=== PATIENT | female | born 1940 | race Caucasian/White ===

== ENCOUNTER → 2021-10-11 | Outpatient (CLI) | payer OTHER ==
[2021-10-11 12:31] LABS: HEMATOCRIT 32.1 % (36-48); LYMPHOCYTES % (AUTO) 26.1 % (21.0-51.0); MEAN CORPUSCULAR HEMOGLOBIN 28.4 pg (27.0-33.0); MEAN CORPUSCULAR HGB CONC 31.5 g/dL (32.0-36.0); MEAN CORPUSCULAR VOLUME 90.2 fL (79-99); MONOCYTES % (AUTO) 9.8 % (3.0-13.0); NEUTROPHILS % (AUTO) 60.7 % (40.0-77.0); PLATELET COUNT (AUTO) 245 K/uL (130-400); RED BLOOD CELL COUNT(AUTO) 3.56 MIL/uL (4.00-5.50); RED CELL DISTRIBUTION WIDTH 14.3 % (11.0-15.5)
[2021-10-11 12:58] LABS: B-TYPE NATRIURETIC PEPTIDE 94 pg/mL (0-100)
[2021-10-11 13:07] LABS: CREATININE 1.5 mg/dL (0.5-1.5); POTASSIUM 4.5 mmol/L (3.5-5.1)
== END | disposition home or self-care (01) ==
LOC: LAB 08:23
PROVIDERS: ATTEND Internal Medicine Cardiovascular Disease
DX: I11.9 Hypertensive heart disease without heart failure (principal); I25.10 Atherosclerotic heart disease of native coronary artery without angina pectoris
CPT/HCPCS: 36415; 80048; 83880; 85025; 85378

== ENCOUNTER → 2022-07-11 | Outpatient (CLI) | payer OTHER ==
[~2022-07-11] MED LIST: ALPR0.255 PO; ESOM20CA39 PO; GLIP10TA9 PO; METO-391 PO; METO10TA3 PO; OLME40TA18 PO; PRAV20TA4 PO
== END | disposition home or self-care (01) ==
LOC: LAB 10:01
PROVIDERS: ATTEND Internal Medicine Cardiovascular Disease
DX: I10 Essential (primary) hypertension (principal)
CPT/HCPCS: 36415; 83880

== ENCOUNTER → 2022-08-07 | Outpatient (CLI) | payer OTHER ==
[~2022-08-07] MED LIST changes: +AEC81 PO; +AMLO2.5T2 PO; +CEPH500C2 PO; +FURO40TA7 PO; -METO-391 PO
== END | disposition home or self-care (01) ==
LOC: SHCH 10:27
PROVIDERS: ATTEND Internal Medicine Cardiovascular Disease
DX: I08.3 Combined rheumatic disorders of mitral, aortic and tricuspid valves (principal); I25.10 Atherosclerotic heart disease of native coronary artery without angina pectoris; I10 Essential (primary) hypertension; E78.5 Hyperlipidemia, unspecified; E11.9 Type 2 diabetes mellitus without complications
CPT/HCPCS: 93306

== ENCOUNTER 2022-08-21 14:13 | Inpatient (IN) | payer OTHER ==
[~2022-08-21] VITALS: Ht 175.3 cm; Wt 57.7 kg
[~2022-08-21 14:13] MED LIST changes: +ETOMIDATE 20MG VIAL IVP ONE; +ROCURONIUM BROMIDE 10MG/1ML 5ML VL IV ONE
[2022-08-21] MEDS ORDERED: KCL 20 MEQ ERTAB PO PRN (15:30)
[2022-08-21] MEDS ORDERED: LACTULOSE 20 GM/30 ML UDCUP PO PRN (15:30)
[2022-08-21] MEDS ORDERED: MAGNESIUM 2GM PREMIX 50ML 50 ML IV PRN (15:30)
[2022-08-21] MEDS ORDERED: ONDANSETRON 4MG INJ IV PRN (15:30)
[2022-08-21] MEDS ORDERED: POTASSIUM CHLORIDE 20MEQ/100ML 100 ML IV PRN (15:30)
[2022-08-21] MEDS ORDERED: MAG/ALUM/SIMETH 30 ML UDCUP PO PRN (15:30)
[2022-08-21] MEDS ORDERED: DiphenhydrAMINE HCL 50 MG/ML VIAL IV PRN (15:30)
[2022-08-21] MEDS ORDERED: NITROGLYCERIN 0.4 MG SL TAB SL PRN (15:30)
[2022-08-21] MEDS ORDERED: DIPHENHYDRAMINE HCL 25 MG CAPSULE PO PRN (15:30)
[2022-08-21] MEDS ORDERED: GLUCAGON 1MG KIT 1 MG ML IM PRN (15:30)
[2022-08-21] MEDS ORDERED: DEXTROSE 50%-WATER 50 ML DISP.SYRIN IV PRN (15:30)
[2022-08-21] MEDS ORDERED: GUAIFENESIN-DM 200/20 MG 10 ML PO PRN (15:30)
[2022-08-21] MEDS ORDERED: ACETAMINOPHEN 325 MG TAB PO PRN ×2 (15:30)
[2022-08-21 15:39] LABS: EOSINOPHILS % (AUTO) 2.3 % (0.0-8.0); HEMATOCRIT 35.2 % (36-48); LYMPHOCYTES % (AUTO) 28.7 % (21.0-51.0); MEAN CORPUSCULAR HEMOGLOBIN 29.8 pg (27.0-33.0); MEAN CORPUSCULAR VOLUME 90.5 fL (79-99); MONOCYTES % (AUTO) 7.7 % (3.0-13.0); NEUTROPHILS % (AUTO) 59.9 % (40.0-77.0); PLATELET COUNT (AUTO) 175 K/uL (130-400); RED BLOOD CELL COUNT(AUTO) 3.89 MIL/uL (4.00-5.50); RED CELL DISTRIBUTION WIDTH 14.4 % (11.0-15.5); WHITE BLOOD COUNT (AUTO) 7.3 K/uL (4.8-10.8)
[2022-08-21 15:49] LABS: INR 1.1 (0.85-1.15); PROTHROMBIN TIME 11.9 SEC (9.6-11.6)
[2022-08-21 15:50] LABS: PARTIAL THROMBOPLASTIN TIME 27.8 SEC (26.3-35.5)
[2022-08-21 15:54] LABS: % IRON SATURATION 27.1 % (22-44)
[2022-08-21 15:57] LABS: B-TYPE NATRIURETIC PEPTIDE 995 pg/mL (0-100)
[2022-08-21 16:05] LABS: ALBUMIN 3.4 g/dL (3.5-5.0); CREATININE 2.1 mg/dL (0.5-1.5); MAGNESIUM 2.3 mg/dL (1.80-2.40); PHOSPHORUS 1.9 mg/dL (2.5-4.9); THYROID STIMULATING HORMONE 1.99 uIU/mL (0.36-3.74)
[2022-08-21] MEDS: INSULIN HUMULIN R 100 UNIT/ML 3ML SQ SCH ×2 (16:30→22:00)
[2022-08-21 16:53] LABS: ABG BASE EXCESS 1.7 mmol/L (-2.0-3.0); ABG HCO3 20.4 mmol/L (21.0-28.0); ABG PCO2 20 mmHg (32-45)
[2022-08-21] MEDS: FAMOTIDINE 20MG TAB PO SCH (17:00)
[2022-08-21] MEDS ORDERED: FAMOTIDINE 20MG VIAL IV SCH (21:00)
[2022-08-21] MEDS: AMLODIPINE 2.5 MG TAB PO SCH (22:00)
[2022-08-21] MEDS: HEPARIN 5,000 UNIT VIAL SQ SCH (22:00)
[2022-08-21 23:39] VITALS: BP 175/66
[2022-08-22] VITALS: BP 149/93
[2022-08-22] MEDS: ALPRAZOLAM 0.25 MG TABLET PO SCH ×2 (01:04→20:25)
[2022-08-22 04:00] VITALS: BP 127/58
[2022-08-22 04:05] LABS: BASOPHILS % (AUTO) 0.8 % (0.0-5.0); EOSINOPHILS % (AUTO) 2.2 % (0.0-8.0); LYMPHOCYTES % (AUTO) 24.1 % (21.0-51.0); MEAN CORPUSCULAR HEMOGLOBIN 30.3 pg (27.0-33.0); MEAN CORPUSCULAR HGB CONC 33.2 g/dL (32.0-36.0); MEAN CORPUSCULAR VOLUME 91.2 fL (79-99); MONOCYTES % (AUTO) 9.1 % (3.0-13.0); NEUTROPHILS % (AUTO) 63.2 % (40.0-77.0); PLATELET COUNT (AUTO) 143 K/uL (130-400); RED CELL DISTRIBUTION WIDTH 14.2 % (11.0-15.5); WHITE BLOOD COUNT (AUTO) 7.2 K/uL (4.8-10.8)
[2022-08-22 04:20] LABS: MAGNESIUM 2.1 mg/dL (1.80-2.40); POTASSIUM 3.4 mmol/L (3.5-5.1)
[2022-08-22] MEDS: INSULIN HUMULIN R 100 UNIT/ML 3ML SQ SCH ×4 (07:23→21:06)
[2022-08-22 07:41] LABS: ABG HCO3 21.6 mmol/L (21.0-28.0); ABG OXYGEN SATURATION 98.9 % (95.0-99.0); ABG PCO2 23 mmHg (32-45)
[2022-08-22 08:00] VITALS: BP 138/53
[2022-08-22] MEDS: ASPIRIN 81 MG EC TAB PO SCH (08:02)
[2022-08-22] MEDS: FAMOTIDINE 20MG TAB PO SCH (08:02)
[2022-08-22] MEDS: AMLODIPINE 2.5 MG TAB PO SCH ×2 (08:02→20:25)
[2022-08-22] MEDS: FUROSEMIDE 40 MG TABLET PO SCH (08:02)
[2022-08-22] MEDS: HEPARIN 5,000 UNIT VIAL SQ SCH ×3 (08:09→20:26)
[2022-08-22 12:00] VITALS: BP 128/51
[2022-08-22] MEDS ORDERED: VANCOMYCIN 1G/250ML KIT 250 ML IV PRN (13:00)
[2022-08-22 16:00] VITALS: BP 155/47
[2022-08-22 20:00] VITALS: BP 140/83
[2022-08-23] VITALS (35 sets, daily range): BP systolic 74–209; BP diastolic 39–99
[2022-08-23 04:06] LABS: BASOPHILS % (AUTO) 1.2 % (0.0-5.0); EOSINOPHILS % (AUTO) 2.9 % (0.0-8.0); HEMATOCRIT 33.9 % (36-48); MEAN CORPUSCULAR HEMOGLOBIN 29.9 pg (27.0-33.0); MEAN CORPUSCULAR HGB CONC 32.2 g/dL (32.0-36.0); MEAN CORPUSCULAR VOLUME 93.1 fL (79-99); MONOCYTES % (AUTO) 9.2 % (3.0-13.0); NEUTROPHILS % (AUTO) 55.5 % (40.0-77.0); PLATELET COUNT (AUTO) 131 K/uL (130-400); RED BLOOD CELL COUNT(AUTO) 3.64 MIL/uL (4.00-5.50); RED CELL DISTRIBUTION WIDTH 14.5 % (11.0-15.5); WHITE BLOOD COUNT (AUTO) 5.9 K/uL (4.8-10.8)
[2022-08-23 04:16] LABS: CREATININE 2.1 mg/dL (0.5-1.5); POTASSIUM 3.6 mmol/L (3.5-5.1)
[2022-08-23] MEDS: POTASSIUM CHLORIDE 10% ELIXIR 20 MEQ/15 ML UDCUP PO PRN (05:00)
[2022-08-23] MEDS: INSULIN HUMULIN R 100 UNIT/ML 3ML SQ SCH ×4 (06:38→21:00)
[2022-08-23] MEDS: HEPARIN 5,000 UNIT VIAL SQ SCH ×3 (07:47→21:00)
[2022-08-23] MEDS: ASPIRIN 81 MG EC TAB PO SCH (08:27)
[2022-08-23] MEDS: AMLODIPINE 2.5 MG TAB PO SCH ×2 (08:27→21:00)
[2022-08-23] MEDS: FAMOTIDINE 20MG TAB PO SCH (08:28)
[2022-08-23] MEDS: FUROSEMIDE 40 MG TABLET PO SCH (08:28)
[2022-08-23] MEDS ORDERED: ALPRAZOLAM 0.5 MG TABLET ONE (11:39)
[2022-08-23 11:55] LABS: ABG BASE EXCESS -0.4 mmol/L (-2.0-3.0); ABG HCO3 15.2 mmol/L (21.0-28.0); ABG OXYGEN SATURATION 98.8 % (95.0-99.0); ABG PCO2 < 15 mmHg (32-45)
[2022-08-23] MEDS ORDERED: ALPRAZOLAM 0.5 MG TABLET PO ONE (13:00)
[2022-08-23] MEDS ORDERED: MEPERIDINE-PF 25 MG/ML SYG ONE ×2 (15:48→17:00)
[2022-08-23] MEDS ORDERED: LIDOCAINE HCL 1% MDV 50ML VIAL ONE (15:48)
[2022-08-23] MEDS ORDERED: MIDAZOLAM HCL 1 MG/ML 2ML VIAL ONE ×2 (15:49→17:00)
[2022-08-23] MEDS ORDERED: BUPIVACAINE/PF 0.25% 10ML VIAL IJ ONE (15:49)
[2022-08-23] MEDS ORDERED: IOHEXOL-350 50ML VIAL IV ONE (17:03)
[2022-08-23] MEDS ORDERED: FLUMAZENIL 0.1MG/1ML 5ML VIAL IV ONE (18:23)
[2022-08-23] MEDS ORDERED: NALOXONE HCL 0.4 MG/1 ML ML ONE (18:24)
[2022-08-23 19:44] LABS: ABG BASE EXCESS -7.4 mmol/L (-2.0-3.0); ABG HCO3 21.3 mmol/L (21.0-28.0); ABG OXYGEN SATURATION 99.5 % (95.0-99.0); ABG PCO2 56 mmHg (32-45)
[2022-08-23] MEDS: ALPRAZOLAM 0.25 MG TABLET PO SCH (21:00)
[2022-08-23] MEDS ORDERED: NOREPINEPHRIN 4MG/NS 250ML 250 ML IV SCH (22:00)
[2022-08-24] VITALS (71 sets, daily range): BP systolic 77–165; BP diastolic 39–85
[2022-08-24 00:12] LABS: ABG BASE EXCESS -5.7 mmol/L (-2.0-3.0); ABG HCO3 19.5 mmol/L (21.0-28.0); ABG OXYGEN SATURATION 99.2 % (95.0-99.0); ABG PCO2 37 mmHg (32-45)
[2022-08-24] MEDS ORDERED: PROPOFOL 1000 MG/100 ML 100 ML IV ONE (01:27)
[2022-08-24] MEDS ORDERED: PROPOFOL 1000 MG/100 ML IV PRN (01:30)
[2022-08-24 04:21] LABS: BASOPHILS % (AUTO) 0.2 % (0.0-5.0); HEMATOCRIT 34.5 % (36-48); LYMPHOCYTES % (AUTO) 4.3 % (21.0-51.0); MEAN CORPUSCULAR HEMOGLOBIN 29.9 pg (27.0-33.0); MEAN CORPUSCULAR HGB CONC 32.5 g/dL (32.0-36.0); MEAN CORPUSCULAR VOLUME 92.2 fL (79-99); MONOCYTES % (AUTO) 6.6 % (3.0-13.0); NEUTROPHILS % (AUTO) 88.5 % (40.0-77.0); PLATELET COUNT (AUTO) 151 K/uL (130-400); RED BLOOD CELL COUNT(AUTO) 3.74 MIL/uL (4.00-5.50); RED CELL DISTRIBUTION WIDTH 14.1 % (11.0-15.5); WHITE BLOOD COUNT (AUTO) 15.2 K/uL (4.8-10.8)
[2022-08-24 04:43] LABS: CREATININE 2.2 mg/dL (0.5-1.5); POTASSIUM 4.1 mmol/L (3.5-5.1)
[2022-08-24 05:16] LABS: OCCULT BLOOD,GASTRIC FLUID POSITIVE (NEGATIVE)
[2022-08-24] MEDS: INSULIN HUMULIN R 100 UNIT/ML 3ML SQ SCH ×4 (06:11→21:00)
[2022-08-24] MEDS ORDERED: MIDAZOLAM HCL 1 MG/ML 2ML VIAL ONE (07:39)
[2022-08-24] MEDS: AMLODIPINE 2.5 MG TAB PO SCH ×2 (09:00→20:43)
[2022-08-24] MEDS: HEPARIN 5,000 UNIT VIAL SQ SCH ×3 (09:00→20:44)
[2022-08-24] MEDS: CEFEPIME HCL 1 GM VIAL IVPB SCH ×2 (09:48→20:43)
[2022-08-24] MEDS: ASPIRIN 81 MG EC TAB PO SCH (09:48)
[2022-08-24] MEDS: FAMOTIDINE 20MG TAB PO SCH (09:48)
[2022-08-24] MEDS: FUROSEMIDE 40 MG TABLET PO SCH (09:49)
[2022-08-24] MEDS ORDERED: BISACODYL 10 MG SUPP.RECT RC ONE (12:00)
[2022-08-24] MEDS: IPRATROPIUM 0.5 MG/2.5 ML INH IH PRN ×2 (12:09→19:41)
[2022-08-24] MEDS: ACETYLCYSTEINE 10% 100MG/ML 4ML VIAL IH SCH ×2 (12:09→19:41)
[2022-08-24 12:49] LABS: APPEARANCE,URINE TURBID (CLEAR); BILIRUBIN,URINE NEGATIVE (NEGATIVE); COLOR,URINE YELLOW (YELLOW); GLUCOSE, URINE (UA) 50 mg/dL (NEGATIVE); KETONES,URINE NEGATIVE (NEGATIVE); LEUKOCYTE ESTERASE ,URINE 500 Leu/uL (NEGATIVE); NITRATE,URINE NEGATIVE (NEGATIVE); OCCULT BLOOD,URINE LARGE (NEGATIVE); PH,URINE 5.5 (5.0-8.0); PROTEIN,URINE 70 mg/dL (NEGATIVE); UROBILINOGEN,URINE 0.2 mg/dL (0.2-1.0)
[2022-08-24 13:26] LABS: BACTERIA,URINE MOD /HPF (None Seen); CALCIUM OXALATE CRYSTALS,UR MOD /LPF (None Seen); MUCUS,URINE MOD LPF (None Seen); RBC,URINE 26-50 /HPF (0-1); RENAL EPITHELIAL CELLS,URINE FEW /HPF (None Seen); SQUAMOUS EPITHELIAL CELL,UR FEW /HPF (0-2); WBC,URINE TNTC /HPF (0-1)
[2022-08-24] MEDS ORDERED: DEXMEDETOMIDINE HCL 400 MCG in 0.9%NACL 100ML 100 ML IV SCH (16:00)
[2022-08-24] MEDS ORDERED: DEXMEDETOMIDINE 400MCG/NS100ML IV SCH (16:30)
[2022-08-24 17:10] LABS: ABG BASE EXCESS -3.2 mmol/L (-2.0-3.0); ABG HCO3 19.5 mmol/L (21.0-28.0); ABG OXYGEN SATURATION 99.4 % (95.0-99.0); ABG PCO2 29 mmHg (32-45)
[2022-08-24] MEDS: ALPRAZOLAM 0.25 MG TABLET PO SCH (20:43)
[2022-08-25] VITALS (54 sets, daily range): BP systolic 85–152; BP diastolic 39–109
[2022-08-25 04:38] LABS: BASOPHILS % (AUTO) 0.3 % (0.0-5.0); EOSINOPHILS % (AUTO) 0.1 % (0.0-8.0); HEMATOCRIT 34.2 % (36-48); LYMPHOCYTES % (AUTO) 8.5 % (21.0-51.0); MEAN CORPUSCULAR HEMOGLOBIN 30.1 pg (27.0-33.0); MEAN CORPUSCULAR HGB CONC 32.2 g/dL (32.0-36.0); MEAN CORPUSCULAR VOLUME 93.7 fL (79-99); NEUTROPHILS % (AUTO) 83.5 % (40.0-77.0); PLATELET COUNT (AUTO) 131 K/uL (130-400); RED BLOOD CELL COUNT(AUTO) 3.65 MIL/uL (4.00-5.50); RED CELL DISTRIBUTION WIDTH 14.3 % (11.0-15.5); WHITE BLOOD COUNT (AUTO) 11.6 K/uL (4.8-10.8)
[2022-08-25 04:59] LABS: CREATININE 2.5 mg/dL (0.5-1.5); MAGNESIUM 2.2 mg/dL (1.80-2.40); PHOSPHORUS 4.4 mg/dL (2.5-4.9); POTASSIUM 4.6 mmol/L (3.5-5.1)
[2022-08-25] MEDS: ACETYLCYSTEINE 10% 100MG/ML 4ML VIAL IH SCH (06:44)
[2022-08-25] MEDS: IPRATROPIUM 0.5 MG/2.5 ML INH IH PRN (06:44)
[2022-08-25] MEDS: INSULIN HUMULIN R 100 UNIT/ML 3ML SQ SCH ×4 (07:30→21:00)
[2022-08-25] MEDS: AMLODIPINE 2.5 MG TAB PO SCH ×2 (08:47→20:52)
[2022-08-25] MEDS: CEFEPIME HCL 1 GM VIAL IVPB SCH ×2 (08:50→20:51)
[2022-08-25] MEDS: FUROSEMIDE 40 MG TABLET PO SCH (08:51)
[2022-08-25] MEDS: HEPARIN 5,000 UNIT VIAL SQ SCH ×3 (08:51→20:52)
[2022-08-25] MEDS: ASPIRIN 81 MG EC TAB PO SCH (08:54)
[2022-08-25] MEDS: FAMOTIDINE 20MG TAB PO SCH (08:55)
[2022-08-25] MEDS: ACETAMINOPHEN 500 MG TABLET PO PRN (11:47)
[2022-08-25] MEDS ORDERED: HYDROMORPHONE 0.5 MG SYG (0.5MG/0.5ML) IVP PRN ×2 (18:00)
[2022-08-25] MEDS: PHARMACY COMMUNICATION MISC SCH ×2 (18:13→19:00)
[2022-08-25] MEDS ORDERED: VANCOMYCIN 500MG+NS 100ML 100 ML IV SCH (19:00)
[2022-08-25] MEDS: ALPRAZOLAM 0.25 MG TABLET PO SCH (20:52)
[2022-08-26] VITALS (39 sets, daily range): BP systolic 84–179; BP diastolic 42–118
[2022-08-26 06:10] LABS: BASOPHILS % (AUTO) 0.5 % (0.0-5.0); HEMATOCRIT 33.7 % (36-48); LYMPHOCYTES % (AUTO) 9.4 % (21.0-51.0); MEAN CORPUSCULAR HEMOGLOBIN 29.8 pg (27.0-33.0); MEAN CORPUSCULAR HGB CONC 32.9 g/dL (32.0-36.0); MEAN CORPUSCULAR VOLUME 90.6 fL (79-99); MONOCYTES % (AUTO) 9.2 % (3.0-13.0); NEUTROPHILS % (AUTO) 80.4 % (40.0-77.0); PLATELET COUNT (AUTO) 135 K/uL (130-400); RED BLOOD CELL COUNT(AUTO) 3.72 MIL/uL (4.00-5.50); RED CELL DISTRIBUTION WIDTH 14.5 % (11.0-15.5); WHITE BLOOD COUNT (AUTO) 10.5 K/uL (4.8-10.8)
[2022-08-26 06:26] LABS: CREATININE 2.9 mg/dL (0.5-1.5); MAGNESIUM 2.2 mg/dL (1.80-2.40); POTASSIUM 3.3 mmol/L (3.5-5.1); VANCOMYCIN LEVEL 17.7 mcg/mL (18.0-26.0)
[2022-08-26] MEDS: IPRATROPIUM 0.5 MG/2.5 ML INH IH PRN (06:33)
[2022-08-26] MEDS: ACETYLCYSTEINE 10% 100MG/ML 4ML VIAL IH SCH (06:34)
[2022-08-26] MEDS: CEFEPIME HCL 1 GM VIAL IVPB SCH ×2 (07:44→21:11)
[2022-08-26] MEDS: INSULIN HUMULIN R 100 UNIT/ML 3ML SQ SCH ×4 (07:45→21:00)
[2022-08-26] MEDS: LACTATED RINGERS 1000ML 1,000 ML IV SCH ×2 (08:56→14:02)
[2022-08-26] MEDS: ASPIRIN 81 MG EC TAB PO SCH (09:00)
[2022-08-26] MEDS: FAMOTIDINE 20MG TAB PO SCH (09:00)
[2022-08-26] MEDS: AMLODIPINE 2.5 MG TAB PO SCH ×2 (09:00→21:00)
[2022-08-26] MEDS ORDERED: LACTATED RINGERS 1000ML IV SCH (09:00)
[2022-08-26 09:04] LABS: ABG BASE EXCESS -2.6 mmol/L (-2.0-3.0); ABG HCO3 15.8 mmol/L (21.0-28.0); ABG OXYGEN SATURATION 99.2 % (95.0-99.0); ABG PCO2 17 mmHg (32-45)
[2022-08-26] MEDS: HEPARIN 5,000 UNIT VIAL SQ SCH ×3 (09:39→21:11)
[2022-08-26] MEDS: ACETAMINOPHEN 650 MG SUPPOSITORY RC PRN ×2 (09:40→15:32)
[2022-08-26] MEDS: POTASSIUM CHLORIDE 10MEQ/100ML 100 ML IV PRN ×2 (10:09→14:02)
[2022-08-26] MEDS ORDERED: HYDRALAZINE 20MG/ML VIAL IV PRN (14:30)
[2022-08-26] MEDS: ALPRAZOLAM 0.25 MG TABLET PO SCH (21:00)
[2022-08-27] VITALS (20 sets, daily range): BP systolic 100–174; BP diastolic 33–120
[2022-08-27 03:39] LABS: BASOPHILS % (AUTO) 0.4 % (0.0-5.0); HEMATOCRIT 30.2 % (36-48); LYMPHOCYTES % (AUTO) 7.8 % (21.0-51.0); MEAN CORPUSCULAR HEMOGLOBIN 29.6 pg (27.0-33.0); MEAN CORPUSCULAR HGB CONC 31.8 g/dL (32.0-36.0); MEAN CORPUSCULAR VOLUME 93.2 fL (79-99); MONOCYTES % (AUTO) 10.2 % (3.0-13.0); NEUTROPHILS % (AUTO) 81.2 % (40.0-77.0); PLATELET COUNT (AUTO) 158 K/uL (130-400); RED BLOOD CELL COUNT(AUTO) 3.24 MIL/uL (4.00-5.50); RED CELL DISTRIBUTION WIDTH 15.1 % (11.0-15.5); WHITE BLOOD COUNT (AUTO) 10.6 K/uL (4.8-10.8)
[2022-08-27 03:56] LABS: ALBUMIN 2.3 g/dL (3.5-5.0); CREATININE 2.8 mg/dL (0.5-1.5); MAGNESIUM 2.2 mg/dL (1.80-2.40); POTASSIUM 3.9 mmol/L (3.5-5.1); TOTAL PROTEIN, SERUM 5.8 g/dL (6.0-8.3)
[2022-08-27] MEDS: LACTATED RINGERS 1000ML 1,000 ML IV SCH ×2 (04:21→09:50)
[2022-08-27] MEDS: IPRATROPIUM 0.5 MG/2.5 ML INH IH PRN ×2 (06:57→11:08)
[2022-08-27] MEDS: 0.9%NACL 1000ML 1,000 ML IV SCH (07:30)
[2022-08-27] MEDS: INSULIN HUMULIN R 100 UNIT/ML 3ML SQ SCH ×4 (07:30→21:00)
[2022-08-27] MEDS: CEFEPIME HCL 1 GM VIAL IVPB SCH ×2 (08:17→20:44)
[2022-08-27] MEDS: HEPARIN 5,000 UNIT VIAL SQ SCH (08:20)
[2022-08-27] MEDS: ACETAMINOPHEN 650 MG SUPPOSITORY RC PRN (08:52)
[2022-08-27] MEDS: AMLODIPINE 2.5 MG TAB PO SCH ×2 (09:00→11:42)
[2022-08-27] MEDS: ACETYLCYSTEINE 10% 100MG/ML 4ML VIAL IH SCH ×2 (11:07)
[2022-08-27] MEDS: PANTOPRAZOLE 40 MG/VIAL IVP SCH ×2 (11:41→20:44)
[2022-08-27] MEDS: SODIUM BICARBONATE 650 MG TAB PO SCH ×3 (11:41→17:14)
[2022-08-27] MEDS: ASPIRIN 81 MG EC TAB PO SCH (11:42)
[2022-08-27] MEDS: ACETAMINOPHEN 500 MG TABLET PO PRN ×2 (17:15→23:53)
[2022-08-27] MEDS: ALPRAZOLAM 0.25 MG TABLET PO SCH (20:44)
[2022-08-28] MEDS: ACETYLCYSTEINE 10% 100MG/ML 4ML VIAL IH SCH ×3 (00:11→19:01)
[2022-08-28 01:53] VITALS: BP 141/55
[2022-08-28] MEDS: 0.9%NACL 1000ML 1,000 ML IV SCH (02:32)
[2022-08-28 03:09] VITALS: BP 132/61
[2022-08-28 03:57] LABS: CREATININE 2.4 mg/dL (0.5-1.5)
[2022-08-28] MEDS: POTASSIUM CHLORIDE 10% ELIXIR 20 MEQ/15 ML UDCUP PO PRN ×2 (04:22→05:41)
[2022-08-28] MEDS: INSULIN HUMULIN R 100 UNIT/ML 3ML SQ SCH ×3 (05:54→18:09)
[2022-08-28] MEDS ORDERED: SODIUM BICARBONATE 650 MG TAB PO SCH (07:00)
[2022-08-28] MEDS: IPRATROPIUM 0.5 MG/2.5 ML INH IH PRN ×2 (07:04→19:01)
[2022-08-28 07:45] VITALS: BP 143/90
[2022-08-28] MEDS: ASPIRIN 81 MG EC TAB PO SCH (08:08)
[2022-08-28] MEDS: CEFEPIME HCL 1 GM VIAL IVPB SCH ×2 (08:08→20:39)
[2022-08-28] MEDS: PANTOPRAZOLE 40 MG/VIAL IVP SCH ×2 (08:08→20:40)
[2022-08-28] MEDS: AMLODIPINE 2.5 MG TAB PO SCH (08:09)
[2022-08-28] MEDS: DEXTROSE 5%-WATER 1,000 ML IV SCH (09:50)
[2022-08-28 11:34] VITALS: BP 139/53
[2022-08-28] MEDS: ACETAMINOPHEN 500 MG TABLET PO PRN ×2 (11:59→22:39)
[2022-08-28 12:22] LABS: CREATININE 2.2 mg/dL (0.5-1.5); POTASSIUM 3.8 mmol/L (3.5-5.1)
[2022-08-28 15:42] LABS: ALANINE AMINOTRANSFERASE 142 U/L (12-78); ALBUMIN 2.4 g/dL (3.5-5.0); AMMONIA < 10 umol/L (11-32); ASPARTATE AMINOTRANSFERASE 60 U/L (10-37); BILIRUBIN,DIRECT 0.3 mg/dL (0.0-0.3); TOTAL PROTEIN, SERUM 5.9 g/dL (6.0-8.3)
[2022-08-28 16:14] VITALS: BP 155/61
[2022-08-28] MEDS: PHENAZOPYRIDINE HCL 200 MG TABLET PO SCH ×2 (16:25→22:32)
[2022-08-28] MEDS: PHARMACY COMMUNICATION MISC SCH (16:28)
[2022-08-28] MEDS: LIDOCAINE 4% ADH..PATCH TP SCH (18:01)
[2022-08-28 18:57] LABS: THYROID STIMULATING HORMONE 0.44 uIU/mL (0.36-3.74)
[2022-08-28 19:06] VITALS: BP 141/54
[2022-08-28] MEDS: ALPRAZOLAM 0.25 MG TABLET PO SCH (20:40)
[2022-08-28] MEDS: BALSAM PERU/CASTOR OIL 60 GM TUBE TP SCH (20:41)
[2022-08-29] VITALS (7 sets, daily range): BP systolic 109–141; BP diastolic 46–77
[2022-08-29] MEDS: INSULIN HUMULIN R 100 UNIT/ML 3ML SQ SCH ×4 (00:04→18:11)
[2022-08-29] MEDS: DEXTROSE 5%-WATER 1,000 ML IV SCH ×2 (03:06→20:06)
[2022-08-29 04:22] LABS: CREATININE 2.1 mg/dL (0.5-1.5); POTASSIUM 3.3 mmol/L (3.5-5.1)
[2022-08-29] MEDS: PHENAZOPYRIDINE HCL 200 MG TABLET PO SCH ×3 (06:20→22:38)
[2022-08-29] MEDS: POTASSIUM CHLORIDE 10% ELIXIR 20 MEQ/15 ML UDCUP PO PRN (06:20)
[2022-08-29] MEDS: ACETYLCYSTEINE 10% 100MG/ML 4ML VIAL IH SCH (06:39)
[2022-08-29] MEDS: IPRATROPIUM 0.5 MG/2.5 ML INH IH PRN (06:40)
[2022-08-29] MEDS: ASPIRIN 81 MG EC TAB PO SCH (08:50)
[2022-08-29] MEDS: PANTOPRAZOLE 40 MG/VIAL IVP SCH ×2 (08:50→20:23)
[2022-08-29] MEDS: AMLODIPINE 2.5 MG TAB PO SCH (08:50)
[2022-08-29] MEDS: LIDOCAINE 4% ADH..PATCH TP SCH (08:50)
[2022-08-29] MEDS: CEFEPIME HCL 1 GM VIAL IVPB SCH ×2 (08:50→20:23)
[2022-08-29] MEDS: BALSAM PERU/CASTOR OIL 60 GM TUBE TP SCH ×3 (08:51→20:24)
[2022-08-29] MEDS ORDERED: LIDOCAINE 4% ADH..PATCH TP SCH (09:00)
[2022-08-29] MEDS ORDERED: PAMIDRONATE DISODIUM 90MG VIAL 60 MG in 0.9%NACL 1000ML 1,000 ML IV ONE (12:30)
[2022-08-29] MEDS ORDERED: SODIUM BICARBONATE 650 MG TAB PO SCH (12:33)
[2022-08-29] MEDS ORDERED: POTASSIUM CHLORIDE 20 MEQ/100 ML BAG IV SCH (13:00)
[2022-08-29] MEDS: ALPRAZOLAM 0.25 MG TABLET PO SCH (20:23)
[2022-08-29] MEDS: ACETAMINOPHEN 500 MG TABLET PO PRN (23:52)
[2022-08-30 03:56] VITALS: BP 138/58
[2022-08-30 03:56] LABS: HEMATOCRIT 30.8 % (36-48); MEAN CORPUSCULAR HEMOGLOBIN 29.4 pg (27.0-33.0); MEAN CORPUSCULAR HGB CONC 31.2 g/dL (32.0-36.0); MEAN CORPUSCULAR VOLUME 94.2 fL (79-99); RED BLOOD CELL COUNT(AUTO) 3.27 MIL/uL (4.00-5.50); RED CELL DISTRIBUTION WIDTH 14.7 % (11.0-15.5); WHITE BLOOD COUNT (AUTO) 10.7 K/uL (4.8-10.8)
[2022-08-30 04:10] LABS: ALBUMIN 2.2 g/dL (3.5-5.0); CREATININE 1.8 mg/dL (0.5-1.5); MAGNESIUM 2.2 mg/dL (1.80-2.40); PHOSPHORUS 0.8 mg/dL (2.5-4.9); POTASSIUM 3.7 mmol/L (3.5-5.1); TOTAL PROTEIN, SERUM 5.6 g/dL (6.0-8.3)
[2022-08-30] MEDS: PHENAZOPYRIDINE HCL 200 MG TABLET PO SCH ×3 (05:48→23:16)
[2022-08-30] MEDS: DEXTROSE 5%-WATER 1,000 ML IV SCH ×2 (05:48→09:58)
[2022-08-30] MEDS: INSULIN HUMULIN R 100 UNIT/ML 3ML SQ SCH ×5 (05:49→23:55)
[2022-08-30 07:16] VITALS: BP 115/56
[2022-08-30] MEDS: LIDOCAINE 4% ADH..PATCH TP SCH (09:39)
[2022-08-30] MEDS: CEFEPIME HCL 1 GM VIAL IVPB SCH ×2 (09:39→21:32)
[2022-08-30] MEDS: ASPIRIN 81 MG EC TAB PO SCH (09:39)
[2022-08-30] MEDS: BALSAM PERU/CASTOR OIL 60 GM TUBE TP SCH ×3 (09:40→21:58)
[2022-08-30] MEDS: PANTOPRAZOLE 40 MG/VIAL IVP SCH ×2 (09:40→21:32)
[2022-08-30] MEDS: AMLODIPINE 2.5 MG TAB PO SCH (09:40)
[2022-08-30 10:48] VITALS: BP 125/46
[2022-08-30] MEDS ORDERED: PHARMACY COMMUNICATION MISC SCH (11:00)
[2022-08-30] MEDS ORDERED: POTASSIUM PHOS 15 mMOL+NS250ML 250 ML IV PRN (11:00)
[2022-08-30 16:19] VITALS: BP 145/64
[2022-08-30 19:00] VITALS: BP 131/50
[2022-08-30] MEDS: ALPRAZOLAM 0.25 MG TABLET PO SCH (21:58)
[2022-08-30 23:05] VITALS: BP 133/57
[2022-08-31] MEDS: DEXTROSE 5%-WATER 1,000 ML IV SCH ×3 (02:49→20:13)
[2022-08-31 03:27] VITALS: BP 143/70
[2022-08-31 03:45] LABS: HEMATOCRIT 29.2 % (36-48); MEAN CORPUSCULAR HEMOGLOBIN 29.7 pg (27.0-33.0); MEAN CORPUSCULAR HGB CONC 31.5 g/dL (32.0-36.0); MEAN CORPUSCULAR VOLUME 94.2 fL (79-99); RED BLOOD CELL COUNT(AUTO) 3.1 MIL/uL (4.00-5.50); RED CELL DISTRIBUTION WIDTH 14.6 % (11.0-15.5); WHITE BLOOD COUNT (AUTO) 10.5 K/uL (4.8-10.8)
[2022-08-31 03:58] LABS: ALBUMIN 2.1 g/dL (3.5-5.0); CREATININE 1.5 mg/dL (0.5-1.5); MAGNESIUM 1.9 mg/dL (1.80-2.40); TOTAL PROTEIN, SERUM 5.5 g/dL (6.0-8.3)
[2022-08-31] MEDS: PHENAZOPYRIDINE HCL 200 MG TABLET PO SCH (06:22)
[2022-08-31] MEDS: INSULIN HUMULIN R 100 UNIT/ML 3ML SQ SCH ×3 (06:22→17:49)
[2022-08-31 07:58] VITALS: BP 141/56
[2022-08-31] MEDS: ASPIRIN 81 MG EC TAB PO SCH (08:51)
[2022-08-31] MEDS: CEFEPIME HCL 1 GM VIAL IVPB SCH ×2 (08:51→20:13)
[2022-08-31] MEDS: LIDOCAINE 4% ADH..PATCH TP SCH (08:51)
[2022-08-31] MEDS: BALSAM PERU/CASTOR OIL 60 GM TUBE TP SCH ×3 (08:52→20:13)
[2022-08-31] MEDS: PANTOPRAZOLE 40 MG/VIAL IVP SCH ×2 (08:52→20:13)
[2022-08-31] MEDS: AMLODIPINE 2.5 MG TAB PO SCH (08:52)
[2022-08-31] MEDS ORDERED: PHENAZOPYRIDINE HCL 200 MG TABLET PO PRN (09:30)
[2022-08-31 12:28] VITALS: BP 140/46
[2022-08-31 17:02] VITALS: BP 142/54
[2022-08-31 19:35] VITALS: BP 137/49
[2022-08-31] MEDS: ALPRAZOLAM 0.25 MG TABLET PO SCH (20:14)
[2022-08-31 23:43] VITALS: BP 139/51
[2022-09-01] MEDS: INSULIN HUMULIN R 100 UNIT/ML 3ML SQ SCH ×3 (00:03→12:00)
[2022-09-01 03:55] LABS: HEMATOCRIT 29.8 % (36-48); MEAN CORPUSCULAR HEMOGLOBIN 29.8 pg (27.0-33.0); MEAN CORPUSCULAR HGB CONC 31.9 g/dL (32.0-36.0); MEAN CORPUSCULAR VOLUME 93.4 fL (79-99); RED BLOOD CELL COUNT(AUTO) 3.19 MIL/uL (4.00-5.50); RED CELL DISTRIBUTION WIDTH 14.6 % (11.0-15.5); WHITE BLOOD COUNT (AUTO) 9.4 K/uL (4.8-10.8)
[2022-09-01 04:12] VITALS: BP 148/52
[2022-09-01 04:28] LABS: ALBUMIN 2.1 g/dL (3.5-5.0); BILIRUBIN,DIRECT 0.3 mg/dL (0.0-0.3); CREATININE 1.5 mg/dL (0.5-1.5); MAGNESIUM 2.5 mg/dL (1.80-2.40); TOTAL PROTEIN, SERUM 5.8 g/dL (6.0-8.3)
[2022-09-01 08:00] VITALS: BP 151/95
[2022-09-01] MEDS: LIDOCAINE 4% ADH..PATCH TP SCH (09:04)
[2022-09-01] MEDS: CEFEPIME HCL 1 GM VIAL IVPB SCH ×2 (09:04→20:01)
[2022-09-01] MEDS: ASPIRIN 81 MG EC TAB PO SCH (09:05)
[2022-09-01] MEDS: PANTOPRAZOLE 40 MG/VIAL IVP SCH ×2 (09:05→20:02)
[2022-09-01] MEDS: AMLODIPINE 2.5 MG TAB PO SCH (09:05)
[2022-09-01] MEDS: BALSAM PERU/CASTOR OIL 60 GM TUBE TP SCH ×3 (09:06→20:02)
[2022-09-01 11:30] VITALS: BP 140/54
[2022-09-01 16:00] VITALS: BP 139/56
[2022-09-01 19:35] VITALS: BP 136/51
[2022-09-01] MEDS: ALPRAZOLAM 0.25 MG TABLET PO SCH (20:02)
[2022-09-02 00:02] VITALS: BP 141/57
[2022-09-02 04:07] LABS: BASOPHILS % (AUTO) 0.6 % (0.0-5.0); HEMATOCRIT 28.6 % (36-48); LYMPHOCYTES % (AUTO) 10.7 % (21.0-51.0); MEAN CORPUSCULAR HEMOGLOBIN 29.5 pg (27.0-33.0); MEAN CORPUSCULAR HGB CONC 31.1 g/dL (32.0-36.0); MEAN CORPUSCULAR VOLUME 94.7 fL (79-99); MONOCYTES % (AUTO) 13.6 % (3.0-13.0); NEUTROPHILS % (AUTO) 69.6 % (40.0-77.0); PLATELET COUNT (AUTO) 121 K/uL (130-400); RED BLOOD CELL COUNT(AUTO) 3.02 MIL/uL (4.00-5.50); RED CELL DISTRIBUTION WIDTH 14.7 % (11.0-15.5); WHITE BLOOD COUNT (AUTO) 8.3 K/uL (4.8-10.8)
[2022-09-02 04:21] LABS: ALBUMIN 1.9 g/dL (3.5-5.0); CREATININE 1.5 mg/dL (0.5-1.5); MAGNESIUM 2.3 mg/dL (1.80-2.40); POTASSIUM 4.4 mmol/L (3.5-5.1); TOTAL PROTEIN, SERUM 5.4 g/dL (6.0-8.3)
[2022-09-02 04:29] VITALS: BP 141/57
[2022-09-02] MEDS: INSULIN HUMULIN R 100 UNIT/ML 3ML SQ SCH ×3 (05:21→12:00)
[2022-09-02 09:20] VITALS: BP 145/61
[2022-09-02] MEDS: IPRATROPIUM/ALBUTEROL SULFATE 3 ML SOLUTION IH SCH ×2 (11:30→18:58)
[2022-09-02] MEDS: PANTOPRAZOLE 40 MG/VIAL IVP SCH ×2 (11:44→22:29)
[2022-09-02] MEDS: AMLODIPINE 2.5 MG TAB PO SCH (11:44)
[2022-09-02] MEDS: CEFEPIME HCL 1 GM VIAL IVPB SCH ×2 (11:44→22:29)
[2022-09-02] MEDS: ASPIRIN 81 MG EC TAB PO SCH (11:45)
[2022-09-02] MEDS: LIDOCAINE 4% ADH..PATCH TP SCH (11:52)
[2022-09-02] MEDS: BALSAM PERU/CASTOR OIL 60 GM TUBE TP SCH ×2 (11:52→23:54)
[2022-09-02 12:11] VITALS: BP 134/58
[2022-09-02 16:57] VITALS: BP 126/46
[2022-09-02 19:43] VITALS: BP 130/49
[2022-09-02] MEDS: ALPRAZOLAM 0.25 MG TABLET PO SCH (22:29)
[2022-09-03 00:05] VITALS: BP 142/57
[2022-09-03] MEDS: INSULIN HUMULIN R 100 UNIT/ML 3ML SQ SCH ×4 (00:45→16:48)
[2022-09-03] MEDS: ACETAMINOPHEN 500 MG TABLET PO PRN (03:09)
[2022-09-03 03:55] LABS: BASOPHILS % (AUTO) 0.5 % (0.0-5.0); EOSINOPHILS % (AUTO) 0.5 % (0.0-8.0); LYMPHOCYTES % (AUTO) 9.7 % (21.0-51.0); MEAN CORPUSCULAR HEMOGLOBIN 29.8 pg (27.0-33.0); MEAN CORPUSCULAR HGB CONC 31.7 g/dL (32.0-36.0); MONOCYTES % (AUTO) 10.7 % (3.0-13.0); NEUTROPHILS % (AUTO) 76.6 % (40.0-77.0); PLATELET COUNT (AUTO) 136 K/uL (130-400); RED BLOOD CELL COUNT(AUTO) 3.19 MIL/uL (4.00-5.50); RED CELL DISTRIBUTION WIDTH 14.9 % (11.0-15.5); WHITE BLOOD COUNT (AUTO) 9.9 K/uL (4.8-10.8)
[2022-09-03 04:14] LABS: % IRON SATURATION 18.8 % (22-44)
[2022-09-03 04:31] VITALS: BP 131/61
[2022-09-03 04:56] LABS: CREATININE 1.5 mg/dL (0.5-1.5); MAGNESIUM 2.4 mg/dL (1.80-2.40); POTASSIUM 4.2 mmol/L (3.5-5.1)
[2022-09-03] MEDS: IPRATROPIUM/ALBUTEROL SULFATE 3 ML SOLUTION IH SCH ×3 (07:01→18:00)
[2022-09-03 07:18] VITALS: BP 151/57
[2022-09-03] MEDS: CEFEPIME HCL 1 GM VIAL IVPB SCH ×2 (08:51→20:45)
[2022-09-03] MEDS: AMLODIPINE 2.5 MG TAB PO SCH (08:52)
[2022-09-03] MEDS: LIDOCAINE 4% ADH..PATCH TP SCH (08:52)
[2022-09-03] MEDS: BALSAM PERU/CASTOR OIL 60 GM TUBE TP SCH ×3 (08:52→22:36)
[2022-09-03] MEDS: ASPIRIN 81 MG EC TAB PO SCH (08:52)
[2022-09-03] MEDS: PANTOPRAZOLE 40 MG/VIAL IVP SCH ×2 (08:52→20:45)
[2022-09-03 11:38] VITALS: BP 114/41
[2022-09-03 16:09] VITALS: BP 126/49
[2022-09-03 19:36] VITALS: BP 130/54
[2022-09-03] MEDS: ALPRAZOLAM 0.25 MG TABLET PO SCH (20:44)
[2022-09-04 00:25] VITALS: BP 125/55
[2022-09-04 03:45] VITALS: BP 127/56
[2022-09-04] MEDS: INSULIN HUMULIN R 100 UNIT/ML 3ML SQ SCH ×3 (06:00→12:00)
[2022-09-04] MEDS: IPRATROPIUM/ALBUTEROL SULFATE 3 ML SOLUTION IH SCH ×2 (06:38→11:37)
[2022-09-04 07:28] VITALS: BP 140/58
[2022-09-04] MEDS ORDERED: FLUTICASONE PROPIONATE 50MCG/SPRAY 16 GM BOTTLE EN SCH (09:00)
[2022-09-04] MEDS: PANTOPRAZOLE 40 MG/VIAL IVP SCH (09:10)
[2022-09-04] MEDS: AMLODIPINE 2.5 MG TAB PO SCH (09:10)
[2022-09-04] MEDS: ASPIRIN 81 MG EC TAB PO SCH (09:10)
[2022-09-04] MEDS: LIDOCAINE 4% ADH..PATCH TP SCH (09:10)
[2022-09-04] MEDS: BALSAM PERU/CASTOR OIL 60 GM TUBE TP SCH ×2 (09:11→13:25)
[2022-09-04 11:33] VITALS: BP 131/55
== END 2022-09-04 14:25 | DRG 208 ==
LOC: EDH 14:13 → DIRECT 14:14 → 2CV 23:20 → 2DH 08-23 16:54 → 2CH 08-23 21:14 → 2DH 08-27 17:57
PROVIDERS: ADMIT Internal Medicine; ATTEND Internal Medicine
PROC: 5A1945Z Respiratory Ventilation, 24-96 Consecutive Hours (ICD-10-PCS; 2022-08-23)
PROC: 0BH17EZ Insertion of Endotracheal Airway into Trachea, Via Natural or Artificial Opening (ICD-10-PCS; 2022-08-23)
PROC: 5A09357 Assistance with Respiratory Ventilation, Less than 24 Consecutive Hours, Continuous Positive Airway Pressure (ICD-10-PCS; 2022-08-23)
PROC: 0W9B30Z Drainage of Left Pleural Cavity with Drainage Device, Percutaneous Approach (ICD-10-PCS; principal; 2022-08-24)
PROC: 5A09457 Assistance with Respiratory Ventilation, 24-96 Consecutive Hours, Continuous Positive Airway Pressure (ICD-10-PCS; 2022-08-26)
DX: J15.6 Pneumonia due to other Gram-negative bacteria (principal); E43 Unspecified severe protein-calorie malnutrition; G92.8 Other toxic encephalopathy; J95.821 Acute postprocedural respiratory failure; I50.32 Chronic diastolic (congestive) heart failure; J95.811 Postprocedural pneumothorax; J44.0 Chronic obstructive pulmonary disease with (acute) lower respiratory infection; G72.81 Critical illness myopathy; N30.00 Acute cystitis without hematuria; E87.0 Hyperosmolality and hypernatremia; E87.1 Hypo-osmolality and hyponatremia; E87.4 Mixed disorder of acid-base balance; I13.0 Hypertensive heart and chronic kidney disease with heart failure and stage 1 through stage 4 chronic kidney disease, or unspecified chronic kidney disease; N17.9 Acute kidney failure, unspecified; N18.4 Chronic kidney disease, stage 4 (severe); Z68.1 Body mass index [BMI] 19.9 or less, adult; I49.5 Sick sinus syndrome; F41.9 Anxiety disorder, unspecified; I11.0 Hypertensive heart disease with heart failure; I25.10 Atherosclerotic heart disease of native coronary artery without angina pectoris; D50.9 Iron deficiency anemia, unspecified; D63.8 Anemia in other chronic diseases classified elsewhere; E11.22 Type 2 diabetes mellitus with diabetic chronic kidney disease; E78.5 Hyperlipidemia, unspecified; E83.52 Hypercalcemia; E86.0 Dehydration; L89.152 Pressure ulcer of sacral region, stage 2; L89.812 Pressure ulcer of head, stage 2; R13.10 Dysphagia, unspecified; R62.7 Adult failure to thrive; Z96.653 Presence of artificial knee joint, bilateral; S51.812A Laceration without foreign body of left forearm, initial encounter; Z79.82 Long term (current) use of aspirin; Z86.73 Personal history of transient ischemic attack (TIA), and cerebral infarction without residual deficits; Z87.440 Personal history of urinary (tract) infections; Z90.710 Acquired absence of both cervix and uterus; Z91.199 Patient's noncompliance with other medical treatment and regimen due to unspecified reason; Z93.1 Gastrostomy status; Z95.0 Presence of cardiac pacemaker; Z95.1 Presence of aortocoronary bypass graft; Z88.1 Allergy status to other antibiotic agents; Z88.5 Allergy status to narcotic agent; Z88.8 Allergy status to other drugs, medicaments and biological substances
CPT/HCPCS: 31500; 32551; 33208; 36415; 36600; 70450; 71045; 74018; 74230; 80048; 80053; 80076; 80202; 81001; 82140; 82271; 82435; 82550; 82607; 82728; 82803; 82947; 82948; 83540; 83550; 83605; 83735; 83874; 83880; 83970; 84100; 84132; 84145; 84295; 84439; 84443; 84481; 84484; 85018; 85025; 85027; 85610; 85730; 87040; 87071; 87077; 87088; 87186; 87205; 87641; 92507; 92610; 92611; 94002; 94003; 94640; 94660; 94664; 97039; 99156; 99157; A7048; C1769; C1785; C9113; G0378; J0360; J0692; J1644; J1815; J2175; J2250; J2310; J2704; J3370; J3475; J3480; J3490; J7608; Q9967

== ENCOUNTER → 2022-11-20 | Outpatient (CLI) | payer OTHER | END | disposition home or self-care (01) | LOC: RAH 11:15 | PROVIDERS: ATTEND Internal Medicine Cardiovascular Disease | DX: S22.20XK Unspecified fracture of sternum, subsequent encounter for fracture with nonunion (principal); J44.9 Chronic obstructive pulmonary disease, unspecified; M47.815 Spondylosis without myelopathy or radiculopathy, thoracolumbar region; N28.89 Other specified disorders of kidney and ureter | CPT/HCPCS: 71250 ==

== ENCOUNTER → 2022-12-25 | Outpatient (CLI) | payer OTHER | END | disposition home or self-care (01) | LOC: OIH 12:25 | PROVIDERS: ATTEND Family Medicine | DX: R07.81 Pleurodynia (principal); Z95.0 Presence of cardiac pacemaker; Z98.890 Other specified postprocedural states | CPT/HCPCS: 71046 ==